=== PATIENT | female | born 1980 | race Caucasian/White ===

== ENCOUNTER 2017-06-05 14:45 | Emergency (ER) | payer MEDICAID ==
--- NOTE | 2017-06-05 16:39 | Emergency Department Report ---
Chief Complaint: Vaginal Bleeding Stated Complaint: 8-9 WKS PREG/CRAMPING Time Seen by Provider: 06/05/17 16:33 - HPI History of Present Illness: pt states she is 8-10 weeks . PT states she had a positive test . PT states she he had vaginal bleeding x 1 day. - ROS Review of Systems: - active bleeding now + pelvic pain - dysuria - Exam Physical Exam: pt looks well, nontoxic abd soft, + RLQ ttp MSE screening note: Focused history and physical exam performed. Due to findings the following was ordered: labs, us ED Disposition for MSE Condition: Stable
[2017-06-05 18:00] LABS: Basophils % (Auto) 0.7 % (0.0-1.8); Eosinophils % (Auto) 0.5 % (0.0-4.3); Hematocrit 34.8 % (30.3-42.9); Hemoglobin 11.7 gm/dl (10.1-14.3); Mean Corpuscular HGB Conc 34 % (30-34); Mean Corpuscular Hemoglobin 32 pg (28-32); Mean Corpuscular Volume 94 fl (79-97); Platelet Count 178 K/mm3 (140-440); Red Blood Count 3.72 M/mm3 (3.65-5.03); Red Cell Distribution Width 11.6 % (13.2-15.2); White Blood Count 10.1 K/mm3 (4.5-11.0)
[2017-06-05 18:09] LABS: Alanine Aminotransferase 9 units/L (7-56); Albumin 4.2 g/dL (3.9-5); Albumin/Globulin Ratio 1.6 %; Alkaline Phosphatase 52 units/L (35-129); Anion Gap 18 mmol/L; Blood Urea Nitrogen 9 mg/dL (7-17); Calcium 9.2 mg/dL (8.4-10.2); Carbon Dioxide 22 mmol/L (22-30); Chloride 100.3 mmol/L (98-107); Glucose 92 mg/dL (65-100); Potassium 4.2 mmol/L (3.6-5.0); Sodium 136 mmol/L (137-145); Total Protein 6.9 g/dL (6.3-8.2)
[2017-06-05 19:51] LABS: Bilirubin,Urine NEG (Negative); Blood,Urine NEG (Negative); Ketones,Urine NEG (Negative); Leukocyte Esterase,Urine NEG (Negative); Mucus,Urine FEW /HPF; Nitrite,Urine NEG (Negative); Protein,Urine <15 mg/dL mg/dL (Negative); Urobilinogen,Urine < 2.0 mg/dL (<2.0)
--- NOTE | 2017-06-05 19:57 | Emergency Department Report ---
ED HPI - General Chief complaint: Vaginal Bleeding Stated complaint: 8-9 WKS PREG/CRAMPING Time Seen by Provider: 06/05/17 16:33 Source: patient Mode of arrival: Ambulatory Limitations: No Limitations - History of Present Illness Initial comments: 37-year-old female A2 here with vaginal bleeding 2 days ago. Patient states this thinks that she is approximately 9 weeks . 2 days ago she had some slight cramping and passed a sizable clot. Since that time she's had no increase in pain no recurrent pain and no bleeding. She otherwise feels well. She is concerned about possible miscarriage. She has not had an ultrasound at this point. MD Complaint: vaginal bleeding -: Sudden (2 days ago ) Location: pelvis Radiation: none Quality: cramping Consistency: now resolved Worsens with: none Associated symptoms: vaginal bleeding. denies: vaginal discharge, abdominal pain Vaginal bleeding: none - Related Data Allergies Allergy/AdvReac Type Severity Reaction Status Date / Time No Known Allergies Allergy Verified 06/05/17 16:38 ED Review of Systems ROS: Stated complaint: 8-9 WKS PREG/CRAMPING Other details as noted in HPI Comment: All other systems reviewed and negative Constitutional: denies: chills, fever Eyes: denies: eye pain, eye discharge, vision change ENT: denies: ear pain, throat pain Respiratory: denies: cough, shortness of breath, wheezing Cardiovascular: denies: chest pain, palpitations Endocrine: no symptoms reported Gastrointestinal: denies: abdominal pain, nausea, diarrhea Genitourinary: denies: urgency, dysuria, discharge Musculoskeletal: denies: back pain, joint swelling, arthralgia Skin: denies: rash, lesions Neurological: denies: headache, weakness, paresthesias Psychiatric: denies: anxiety, depression Hematological/Lymphatic: denies: easy bleeding, easy bruising ED Past Medical Hx - Past Medical History Previous Medical History?: No - Surgical History Past Surgical History?: No - Family History Family history: no significant - Social History Smoking Status: Former Smoker Substance Use Type: None ED Physical Exam - General Limitations: No Limitations General appearance: alert, in no apparent distress - Head Head exam: Present: atraumatic, normocephalic - Eye Eye exam: Present: normal appearance - ENT ENT exam: Present: mucous membranes moist - Neck Neck exam: Present: normal inspection - Respiratory Respiratory exam: Present: normal lung sounds bilaterally. Absent: respiratory distress - Cardiovascular Cardiovascular Exam: Present: regular rate, normal rhythm. Absent: systolic murmur, diastolic murmur, rubs, gallop - GI/Abdominal GI/Abdominal exam: Present: soft, normal bowel sounds - Extremities Exam Extremities exam: Present: normal inspection - Back Exam Back exam: Present: normal inspection - Neurological Exam Neurological exam: Present: alert, oriented X3 - Psychiatric Psychiatric exam: Present: normal affect, normal mood - Skin Skin exam: Present: warm, dry, intact, normal color. Absent: rash ED Course Vital Signs 06/05/17 16:35 Temperature 98 F Pulse Rate 68 Respiratory 16 Rate Blood Pressure 120/73 O2 Sat by Pulse 100 Oximetry ED Medical Decision Making - Lab Data Result diagrams: 06/05/17 17:03 06/05/17 17:03 Laboratory Results - last 24 hr 06/05/17 06/05/17 06/05/17 17:03 17:03 17:03 WBC 10.1 RBC 3.72 Hgb 11.7 Hct 34.8 MCV 94 MCH 32 MCHC 34 RDW 11.6 L Plt Count 178 Lymph % (Auto) 21.2 Hardy % (Auto) 5.2 Eos % (Auto) 0.5 Baso % (Auto) 0.7 Lymph # 2.1 Hardy # 0.5 Eos # 0.0 Baso # 0.1 Seg Neutrophils % 72.4 H Seg Neutrophils # 7.3 Sodium 136 L Potassium 4.2 Chloride 100.3 Carbon Dioxide 22 Anion Gap 18 BUN 9 Creatinine 0.3 L Estimated GFR > 60 BUN/Creatinine Ratio 30.00 Glucose 92 Calcium 9.2 Total Bilirubin 0.20 AST 13 ALT 9 Alkaline Phosphatase 52 Total Protein 6.9 Albumin 4.2 Albumin/Globulin Ratio 1.6 HCG, Quant 79985 H Urine Bilirubin Urine RBC (Auto) U Epithel Cells (Auto) Blood Type 06/05/17 06/05/17 17:03 19:15 WBC RBC Hgb Hct MCV MCH MCHC RDW Plt Count Lymph % (Auto) Hardy % (Auto) Eos % (Auto) Baso % (Auto) Lymph # Hardy # Eos # Baso # Seg Neutrophils % Seg Neutrophils # Sodium Potassium Chloride Carbon Dioxide Anion Gap BUN Creatinine Estimated GFR BUN/Creatinine Ratio Glucose Calcium Total Bilirubin AST ALT Alkaline Phosphatase Total Protein Albumin Albumin/Globulin Ratio HCG, Quant Urine Bilirubin Neg Urine RBC (Auto) 2.0 U Epithel Cells (Auto) 3.0 Blood Type O POSITIVE - Medical Decision Making 37-year-old female A2 here with slight vaginal bleeding 2 days ago. The symptoms of currently resolved. She has normal labs here. Her ultrasound shows an IUP with a heart rate of 170 and a gestational age of approximately 12 weeks. She is not a candidate for RhoGAM. Discussed with patient and will have her follow-up with her black mill operator. Pelvic exam will be deferred to follow-up with her black mill operator. Portions of this chart were dictated with dictation software. There may be dictation errors contained within this note. Critical care attestation.: If time is entered above; I have spent that time in minutes in the direct care of this critically ill patient, excluding procedure time. ED Disposition Clinical Impression: Threatened Disposition: DC-01 TO HOME OR SELFCARE Is pt being admited?: No Condition: Stable Instructions: Threatened Miscarriage (ED) Additional Instructions: Follow-up with your black mill operator or corporation secretary. Please continue taking vitamins. Referrals: PRIMARY CARE, [Primary Care Provider] - 3-5 Days
--- NOTE | 2017-06-05 20:08 | Ultrasound Report ---
FINAL REPORT PROCEDURE: US OB \T\lt; = 14 WEEKS FETUS TECHNIQUE: Real-time transabdominal sonography of the uterus, placenta, amniotic fluid, adnexa, and fetus was performed with image documentation. Measurements were obtained to determine age/size. M-mode Doppler was used to document heartbeat. CPT 69124 HISTORY: 8 weeks - bleeding. Passing blood clots after heavy lifting during the weekend. Bleeding has stopped. COMPARISON: No prior studies are available for comparison. FINDINGS: A single living intrauterine gestation is visualized in variable presentation with a heart rate 171 beats per minute. Shape of the gestational sac appears normal. Amount of amniotic fluid appears normal. No subchorionic hemorrhage visualized. No uterine masses are detected. [place]-rump length measurement 5.4 centimeter corresponds to an age of 12 weeks 0 days. Fetus currently too small to assess anatomy. No gross abnormality is identified. Right and left ovaries are unremarkable. No abnormal adnexal masses are identified. There is no free fluid in the cul-de-sac. IMPRESSION: There is a single living intrauterine gestation. By crown-rump length measurement estimated age is 12 weeks 0 days. This places the EDC at 12/18/2017 +/-1 week. Fetus currently too small to assess anatomy. No gross abnormality is visualized. No evidence of subchorionic hemorrhage. Shape of the gestational sac appears normal. Ovaries are visualized and show no abnormalities. Consider follow-up Ob ultrasound at 18-20 weeks to evaluate anatomy.
[2017-06-05 20:16] VITALS: BP 116/63
== END 2017-06-05 20:14 | disposition home or self-care (01) ==
LOC: ED 14:45
DX: O20.0 Threatened abortion (principal); Z3A.09 9 weeks gestation of pregnancy; Z87.891 Personal history of nicotine dependence
CPT/HCPCS: 36415; 76801; 80053; 81001; 84702; 85025; 86900; 86901

== ENCOUNTER 2017-09-15 10:38 | Emergency (ER) | payer MEDICAID ==
[2017-09-15 11:42] LABS: Basophils % (Auto) 0.3 % (0.0-1.8); Eosinophils % (Auto) 0.3 % (0.0-4.3); Hemoglobin 11.8 gm/dl (10.1-14.3); Mean Corpuscular HGB Conc 35 % (30-34); Mean Corpuscular Hemoglobin 32 pg (28-32); Mean Corpuscular Volume 93 fl (79-97); Platelet Count 183 K/mm3 (140-440); Red Blood Count 3.66 M/mm3 (3.65-5.03); Red Cell Distribution Width 12.6 % (13.2-15.2); White Blood Count 9.3 K/mm3 (4.5-11.0)
[2017-09-15 12:02] VITALS: BP 101/60
[2017-09-15 12:20] LABS: Alanine Aminotransferase 10 units/L (7-56); Albumin 3.9 g/dL (3.9-5); Albumin/Globulin Ratio 1.4 %; Alkaline Phosphatase 69 units/L (35-129); Anion Gap 18 mmol/L; BUN/Creatinine Ratio 23; Bilirubin,Total < 0.20 mg/dL (0.1-1.2); Blood Urea Nitrogen 7 mg/dL (7-17); Calcium 9.3 mg/dL (8.4-10.2); Carbon Dioxide 22 mmol/L (22-30); Glucose 78 mg/dL (65-100); Potassium 4.5 mmol/L (3.6-5.0); Sodium 134 mmol/L (137-145); Total Protein 6.6 g/dL (6.3-8.2)
[2017-09-15 12:24] LABS: Bacteria,Urine 2+ /HPF (Negative); Mucus,Urine FEW /HPF
[2017-09-15 12:31] LABS: Bilirubin,Urine Negative (Negative); Blood,Urine Negative (Negative); Ketones,Urine Negative (Negative)
[2017-09-15 12:32] LABS: Leukocyte Esterase,Urine Negative (Negative); Nitrite,Urine Negative (Negative); Urobilinogen,Urine < 2.0 mg/dL (<2.0)
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
== END 2017-09-15 14:15 | disposition home or self-care (01) ==
LOC: ED 10:38
DX: R42 Dizziness and giddiness (principal); Z57.5 Occupational exposure to toxic agents in other industries; R11.0 Nausea
CPT/HCPCS: 36415; 80053; 81001; 82375; 85025

== ENCOUNTER 2017-12-08 21:20 | Outpatient (CLI) | payer MEDICAID ==
[2017-12-08 21:35] VITALS: BP 120/78
== END 2017-12-08 22:58 | disposition home or self-care (01) ==
LOC: TRG 21:20
PROVIDERS: ATTEND Obstetrics & Gynecology
DX: O09.523 Supervision of elderly multigravida, third trimester (principal); O47.1 False labor at or after 37 completed weeks of gestation; Z3A.38 38 weeks gestation of pregnancy

== ENCOUNTER 2017-12-11 09:57 | Inpatient (IN) | payer MEDICAID ==
[2017-12-11] MEDS ORDERED: LACTATED RINGERS 1,000 ML ONE ×2 (10:10→11:16)
[2017-12-11] MEDS ORDERED: Fluarix Quad 2017-2018(36 MOS+ IM ONE (10:51)
[2017-12-11] MEDS ORDERED: NARCAN 2 MG/2 ML IV PRN (11:21)
[2017-12-11] MEDS ORDERED: ePHEDrine SULFATE IV PRN (11:21)
--- NOTE | 2017-12-11 11:21 | Anesthesia Consultation ---
Anesthesia Consult and Med Hx Date of service: 12/11/17 - Airway Anesthetic Teeth Evaluation: Good ROM Head & Neck: Adequate Mental/Hyoid Distance: Adequate - Pre-Operative Health Status ASA Pre-Surgery Classification: ASA2 Proposed Anesthetic Plan: Epidural, Spinal - Pulmonary Hx Asthma: No COPD: No Hx Pneumonia: No - Cardiovascular System Hx Hypertension: No - Central Nervous System Hx Seizures: No Hx Psychiatric Problems: No - Endocrine Hx Renal Disease: No Hx End Stage Renal Disease: No Hx Hypothyroidism: No Hx Hyperthyroidism: No - Hematic Hx Anemia: No Hx Sickle Cell Disease: No - Other Systems Hx Alcohol Use: No
[2017-12-11 11:33] LABS: Hemoglobin 12.4 gm/dl (10.1-14.3); Mean Corpuscular HGB Conc 35 % (30-34); Mean Corpuscular Hemoglobin 31 pg (28-32); Mean Corpuscular Volume 90 fl (79-97); Platelet Count 145 K/mm3 (140-440); Red Blood Count 4.02 M/mm3 (3.65-5.03); Red Cell Distribution Width 13.1 % (13.2-15.2)
--- NOTE | 2017-12-11 11:36 | History and Physical Report ---
History of Present Illness Date of examination: 12/11/17 Date of admission: 12/11/17 09:57 Chief complaint: labor History of present illness: This is a 37 yo at 39 weeks came into triage c/o of contractions. Nurse evaluated patietn and noted to be 5cm and aries regularly. She is a patient of [facility] with late care at 14 weeks. Her OB care consisted of resolved nausea and vomiting at first trimester. HX of 0 pound vaginal delivery in the past. HX a baby with T18 this seen by high risk and NIPT neg . Hx of colpo with HSIL. hx of HSV on valtrex hx of choroid plexus syst resolved Past History Past Medical History: no pertinent history Past Surgical History: no surgical history LEAD FORMER History: abnormal PAP smear, herpes, trichomonas Family/Genetic History: cancer Social history: no significant social history, single. denies: smoking, alcohol abuse, prescription drug abuse - Obstetrical History Expected Date of Delivery: 12/18/17 Actual Gestation: 39 Week(s) 0 Day(s) : 7 Para: 3 Hx # Term Pregnancies: 3 Number of Pregnancies: 0 Spontaneous Abortions: 1 Induced : 2 Number of Living Children: 3 Medications and Allergies Allergies Allergy/AdvReac Type Severity Reaction Status Date / Time No Known Allergies Allergy Verified 06/05/17 16:38 Active Meds: Active Medications Ephedrine Sulfate (Ephedrine Sulfate) 10 mg IV Q2M PRN PRN Reason: Hypotension Stop: 12/11/17 23:59 Ampicillin Sodium (Polycillin/Ns 2 Gm/100 Ml) 2 gm in 100 mls @ 100 mls/hr IV ONCE VALDEMAR PRN Reason: Protocol Ampicillin Sodium (Polycillin/Ns 1 Gm/50 Ml) 1 gm in 50 mls @ 100 mls/hr IV Q4HR VALDEMAR PRN Reason: Protocol Fentanyl/Bupivacaine/Sodium Chlor (Fentanyl-Bupiv 2 Mcg/Ml-0.125%) 200 mcg in 100 mls @ 12 mls/hr EPIDURAL TITR VALDEMAR PRN Reason: Protocol Naloxone HCl (Narcan 2 Mg/2 Ml) 0.2 mg IV Q5M PRN PRN Reason: Respiratory sedation Review of Systems All systems: negative Genitourinary: contractions - Vital Signs Vital signs: Vital Signs Pulse Pulse Ox 84 92 12/11/17 10:22 12/11/17 10:22 Temp Pulse Resp BP Pulse Ox 97.8 F 91 H 20 123/68 99 12/11/17 10:30 12/11/17 11:35 12/11/17 10:30 12/11/17 11:35 12/11/17 11:18 - Physical Exam Breasts: Positive: normal Cardiovascular: Regular rate, Normal S1 Lungs: Positive: Clear to auscultation, Normal air movement Abdomen: Positive: normal appearance, soft, normal bowel sounds. Negative: distention, tenderness, guarding Genitourinary (Female): Positive: normal external genitalia, normal perenium Vulva: both: normal Vagina: Positive: normal moisture Uterus: Positive: normal size Adnexa: both: normal Anus/Rectum: Positive: normal perianal skin Extremities: Positive: normal Deep Tendon Reflex Grade: Normal +2 - Obstetrical FHR: category 1 Uterine Contraction Monitor Mode: Palpation Cervical Dilatation: 5 Cervical Effacement Percentage: 80 station: 2 Uterine Contraction Pattern: Regular Uterine Tone Measurement Phase: Contraction Uterine Contraction Intensity: Moderate Results All other labs normal. Assessment and Plan A/P HD#1 Active labor GBS unresulted -gave ampicillin IVF, labs offer epidural expect vaginal delivery
[2017-12-11] MEDS ORDERED: POLYCILLIN/NS 2 GM/100 ML 2 GM/100 ML BAG IV SCH (12:00)
[2017-12-11] MEDS ORDERED: fentaNYL-BUPIV 2 MCG/ML-0.125% 200 MCG/100 ML BAG EPIDURAL SCH (12:00)
[2017-12-11] MEDS ORDERED: PITOCin/NS 20 UNIT/1000ML DRIP 20,000 MILLIUNITS/1,000 ML BAG IV ONE ×2 (12:27→14:53)
[2017-12-11] MEDS ORDERED: PITOCin/NS 30 UNIT/500ML 30 UNITS/500 ML BAG IV SCH (13:00)
--- NOTE | 2017-12-11 13:16 | Procedure Note ---
OB Delivery Note - Delivery Date of Delivery: 12/11/17 Surgeon: MUMTAZ TEJADA Estimated blood loss: 300cc - Vaginal Delivery presentation: vertex Delivery position: OA Intrapartum events: none Delivery induction: none Delivery augmentation: rupture of membranes, pitocin Route of delivery: Delivery placenta: spontaneous Delivery cord: 3 umbilical vessels Episiotomy: none Delivery laceration: none Anesthesia: none Delivery comments: patietn was noted to be c/c/ +1 and commmenced to pushing a viable female at 1306 with easily delviery of shoulders in OA presentation. Baby placed on patient chest. the cord was clamped and cut after 1 min of pulsating. The placenta delivered at 1108 intact with three vessels. Apgars 8 and 9. survery of perineum revealed no lacs. patient tolerated procedure well. EBL 300cc - Infant A at 1 minute: 8 at 5 minutes: 9 Infant Gender: Female
[2017-12-11] MEDS ORDERED: POLYCILLIN/NS 1 GM/50 ML 1 GM/50 ML BAG IV SCH (14:00)
[2017-12-11] MEDS ORDERED: BENADRYL PO PRN (16:02)
[2017-12-11] MEDS ORDERED: ZOFRAN IV PRN (16:02)
[2017-12-11] MEDS ORDERED: DULCOLAX PR PRN (16:02)
[2017-12-11] MEDS ORDERED: PHENERGAN PO PRN (16:02)
[2017-12-11] MEDS ORDERED: LANSINOH TP PRN (16:02)
[2017-12-11] MEDS ORDERED: PHENERGAN PR PRN (16:02)
[2017-12-11] MEDS ORDERED: MILK OF MAGNESIA PO PRN (16:02)
[2017-12-11] MEDS ORDERED: TUCKS PAD TP PRN (16:02)
[2017-12-11] MEDS ORDERED: TYLENOL PO PRN (16:02)
[2017-12-11] MEDS: MOTRIN PO SCH ×2 (16:33→23:16)
[2017-12-11] MEDS: PERCOCET 5/325 PO PRN (16:33)
[2017-12-11] MEDS ORDERED: SODIUM CHLORIDE FLUSH SYRINGE 10 ML IV NR (17:00)
[2017-12-11] MEDS ORDERED: PITOCin/NS 20 UNIT/1000ML DRIP 20 UNITS/1,000 ML BAG IV SCH (17:00)
[2017-12-11] MEDS: NORCO 5/325 PO PRN (20:50)
[2017-12-11] MEDS: COLACE PO SCH (23:16)
[2017-12-12] MEDS: NORCO 5/325 PO PRN ×3 (02:24→22:40)
[2017-12-12] MEDS: SENOKOT S PO SCH ×2 (03:59→05:00)
[2017-12-12] MEDS: MOTRIN PO SCH ×3 (05:32→23:52)
[2017-12-12 05:36] LABS: Hematocrit 30.4 % (30.3-42.9); Hemoglobin 10.7 gm/dl (10.1-14.3)
[2017-12-12] MEDS ORDERED: BOOSTRIX IM ONE ×2 (06:00→16:02)
[2017-12-12] MEDS: COLACE PO SCH ×2 (09:56→22:40)
[2017-12-12] MEDS: PERCOCET 5/325 PO PRN (09:56)
[2017-12-12] MEDS: PRENATAL VITAMIN PO SCH (09:56)
--- NOTE | 2017-12-12 13:28 | Progress Note ---
Assessment and Plan - Patient Problems (1) Normal vaginal delivery Current Visit: Yes Status: Acute Plan to address problem: Patient doing well Will discharge home after 48 hours secondary to GBS status Subjective - Subjective Date of service: 12/12/17 Interval history: The patient is doing well. She reports intermittent cramping. Her lochia is decreasing Patient reports: appetite normal, voiding normally, pain well controlled : doing well Objective - Vital Signs Latest vital signs: Vital Signs Temp Pulse Resp BP BP Pulse Ox 12/12/17 10:01 98 F 67 20 110/71 96 12/12/17 04:00 98.2 F 68 18 112/68 99 12/12/17 02:24 18 12/12/17 00:55 98.6 F 63 18 114/63 98 12/11/17 23:16 20 12/11/17 21:00 98.3 F 76 20 107/67 97 12/11/17 20:50 18 12/11/17 15:10 98.2 F 77 18 122/72 99 12/11/17 14:50 69 111/60 12/11/17 14:36 71 119/66 12/11/17 14:20 72 118/80 12/11/17 14:05 70 119/74 12/11/17 13:50 74 119/72 12/11/17 13:35 76 126/71 12/11/17 13:30 98.4 F 72 18 128/76 97 Intake and Output 12/11/17 12/12/17 12/12/17 22:59 06:59 14:59 Intake Total 480 480 Output Total 900 Balance -420 480 Intake: Oral 480 480 Output: Urine 900 Void 900 Other: Total, Intake Amount 240 240 Total, Output Amount 400 # Voids Void 1 - Exam Uterus: Present: normal, firm
--- NOTE | 2017-12-12 13:29 | Discharge Summary ---
Providers - Providers Date of Admission: 12/11/17 09:57 Date of discharge: 12/13/17 Attending physician: MUMTAZ TEJADA MD Primary care physician: NILDA ALAMO Hospitalization Reason for admission: active labor Discharge diagnosis: IUP at term delivered [place] baby: female Hospital course: Patient was admitted in labor had a normal spontaneous vaginal delivery. Her course was uneventful. Condition at discharge: Good Disposition: DC-01 TO HOME OR SELFCARE - Discharge Diagnoses (1) Normal vaginal delivery Status: Acute Plan - Discharge Medications Prescriptions: HYDROcodone/APAP 5-325 [[place] 5/325] 1 each PO Q6HR PRN #30 tablet PRN Reason: Pain Ibuprofen [Motrin] 800 mg PO Q8HR PRN #60 tablet PRN Reason: Pain - Provider Discharge Summary Activity: no sex for 6 weeks, no heavy lifting 4 weeks, no strenuous exercise Diet: routine Instructions: routine Additional instructions: [] Smoking cessation referral if applicable(refer to patient education folder for contact #) [] Refer to [facility] Booklet Call your doctor immediately for: * Fever > 100.5 * Heavy vaginal bleeding ( >1 pad per hour) * Severe persistent headache * Shortness of breath * Reddened, hot, painful area to leg or breast * Follow-up 4 weeks - Follow up plan
[2017-12-12] MEDS ORDERED: M-M-R II VACCINE SUB-Q ONE (16:02)
[2017-12-13] MEDS: MOTRIN PO SCH (05:45)
[2017-12-13] MEDS: COLACE PO SCH (10:50)
[2017-12-13] MEDS: PRENATAL VITAMIN PO SCH (10:50)
[2017-12-13] MEDS: NORCO 5/325 PO PRN (10:51)
[2017-12-13 14:28] VITALS: BP 114/64
== END 2017-12-13 13:50 | disposition home or self-care (01) | DRG 774 ==
LOC: LD 09:57 → OB 15:45
PROVIDERS: ADMIT Obstetrics & Gynecology; ATTEND Obstetrics & Gynecology
PROC: 10E0XZZ Delivery of Products of Conception, External Approach (ICD-10-PCS; principal; 2017-12-11)
PROC: 3E0234Z Introduction of Serum, Toxoid and Vaccine into Muscle, Percutaneous Approach (ICD-10-PCS; 2017-12-12)
DX: O99.824 Streptococcus B carrier state complicating childbirth (principal); O98.32 Other infections with a predominantly sexual mode of transmission complicating childbirth; Z3A.39 39 weeks gestation of pregnancy; Z37.0 Single live birth; Z23 Encounter for immunization; A60.00 Herpesviral infection of urogenital system, unspecified
CPT/HCPCS: 36415; 85014; 85018; 85027; 86592; 86850; 86900; 86901; 90471; 90686; 90715; 99211; G0463; J0290; J2590; J7120